=== PATIENT | female | born 1945 | race Caucasian/White ===

== ENCOUNTER 2016-12-16 12:36 | Emergency (ER) | payer OTHER ==
[~2016-12-16] VITALS: Ht 147.3 cm; Wt 56.5 kg
[2016-12-16 12:44] VITALS: Ht 147.3 cm; Wt 56.5 kg
[2016-12-16] MEDS ORDERED: BACI28.34 TOP (13:37)
--- NOTE | 2016-12-16 14:23 | ERD ---
ER Documentation Chief Complaint Date/Time DATE: 12/16/16 TIME: 14:18 Chief Complaint Bilat heel pain x4 days HPI 71 yr old female complaining of bilateral heel pain. She was wearing shoes 4 days ago that caused an abrasion to both heels. Patient is concerned that there is an infection. Patient has been cleaning with soap and water and applying Band-Aids. Denies any numbness or tingling. Patient denies any fevers. ROS All systems reviewed and are negative except as per history of present illness. Medications Home Meds Active Scripts Bacitracin* (Bacitracin Zinc Oint*) 28.35 Gm Oint, 1 APPLIC TOP BID, #1 TUB APPLI TO Prov:VANESA BARLOW PA-C 12/16/16 Allergies Allergies: Uncoded Allergies: TETANUS SHOTS (Allergy, Mild, 12/16/16) PMhx/Soc Medical and Surgical Hx: pt denies Medical Hx, pt denies Surgical Hx History of Surgery: Yes (removal of the left kidney) Anesthesia Reaction: No Hx Neurological Disorder: No Hx Respiratory Disorders: No Hx Cardiac Disorders: Yes (hypertension) Hx Psychiatric Problems: No Hx Miscellaneous Medical Probl: No Hx Alcohol Use: No Hx Substance Use: No Hx Tobacco Use: No Smoking Status: Never smoker Physical Exam Vitals Vital Signs Date Time Temp Pulse Resp B/P Pulse Ox O2 Delivery O2 Flow Rate FiO2 12/16/16 12:44 98.5 86 18 136/63 95 Physical Exam GENERAL: The patient is well-appearing, well-nourished, in no acute distress CHEST: Clear to auscultation bilaterally. There are no rales, wheezes or rhonchi. HEART: Regular rate and rhythm. No murmurs, clicks, rubs or gallops. No S3 or S4. SKIN: Superficial abrasion to both heels. No surrounding erythema. No purulence. No bleeding. Procedures/MDM MDM: 71-year-old female complaining of abrasions to bilateral heels. I have low suspicion for localized cellulitic infection. Patient does not need oral antibiotics. Patient does have open wounds that will benefit from topical antibiotics. Patient is recommended to refrain from wearing shoes that rub and to follow-up with primary care within 1-2 days for close evaluation. Patient is told if symptoms change or worsen to return to the ER. Patient will follow up with primary care and all questions answered at discharge. Departure Diagnosis: Primary Impression: Abrasion Condition: Stable Patient Instructions: Abrasion Referrals: [facility] YOU HAVE RECEIVED A MEDICAL SCREENING EXAM AND THE RESULTS INDICATE THAT YOU DO NOT HAVE A CONDITION THAT REQUIRES URGENT TREATMENT IN THE EMERGENCY DEPARTMENT. FURTHER EVALUATION AND TREATMENT OF YOUR CONDITION CAN WAIT UNTIL YOU ARE SEEN IN YOUR DOCTORS OFFICE WITHIN THE NEXT 1-2 DAYS. IT IS YOUR RESPONSIBILITY TO MAKE AN APPOINTMENT FOR FOLOW-UP CARE. IF YOU HAVE A PRIMARY DOCTOR --you should call your primary doctor and schedule an appointment IF YOU DO NOT HAVE A PRIMARY DOCTOR YOU CAN CALL OUR PHYSICIAN REFERRAL HOTLINE AT IF YOU CAN NOT AFFORD TO SEE A PHYSICIAN YOU CAN CHOSE FROM THE FOLLOWING [facility] [address] [facility]. [facility] [address] [facility] [facility] [address] [facility] [address] [facility] [facility] [address] [facility]. [facility] [address] Additional Instructions: FOLLOW UP WITH YOUR PRIMARY CARE PHYSICIAN TOMORROW.Return to this facility if you are not improving as expected. VANESA BARLOW PA-C Dec 16, 2016 14:23
== END 2016-12-16 13:54 | disposition home or self-care (01) ==
LOC: FTE 12:36
DX: S90.811A Abrasion, right foot, initial encounter (principal); S90.812A Abrasion, left foot, initial encounter; I10 Essential (primary) hypertension; X58.XXXA Exposure to other specified factors, initial encounter; Y92.9 Unspecified place or not applicable
CPT/HCPCS: 99283

== ENCOUNTER 2017-12-27 20:13 | Emergency (ER) | END 2017-12-28 00:19 | disposition home or self-care (01) ==